=== PATIENT | female | born 1975 | race Caucasian/White ===

== ENCOUNTER → 2016-06-20 | Outpatient (CLI) | payer BC ==
--- NOTE | 2016-06-20 14:54 | MAMMOGRAPHY REPORT ---
BILATERAL DIGITAL SCREENING MAMMOGRAM TOMOSYNTHESIS WITH CAD: 06/20/2016 CLINICAL HISTORY: Routine screening. TECHNIQUE: Bilateral breast tomosynthesis and standard 2-D mammography in addition to right XCCL vie ws were obtained. Current study was also evaluated with a Computer Aided Detection (CAD) system. COMPARISON: Comparison is made to exams dated: 06/17/2015 mammogram, 06/14/2013 mammogram, 11/24/2015 ma mmogram, 12/06/2013 ultrasound biopsy, 06/06/2012 mammogram, and 01/29/2010 mammogram - [facility]. BREAST COMPOSITION: The tissue of both breasts is extremely dense, which lowers the sensitivity of mammography. FINDINGS: There are multiple bilateral circumscribed masses in the breasts. The circumscribed borde rs are best seen on the tomosynthesis images. There are stable metallic biopsy markers within the r ight breast and a stable intramammary lymph node in the right upper outer quadrant. No suspicious i rregular or spiculated mass, architectural distortion or cluster of suspicious microcalcifications i s seen. IMPRESSION: ACR BI-RADS CATEGORY 1: NEGATIVE There is no mammographic evidence of malignancy. A 1 year screening mammogram is recommended. Depen ding on the patient's personal risk factors, with first-degree relatives with a history of breast ca ncer, the patient may be eligible for screening breast MRI, if her lifetime risk is at least 20% for developing breast cancer. The patient will receive written notification of the results. Approximately 10% of breast cancers are not detected with mammography. A negative mammographic repor t should not delay biopsy if a clinically suggestive mass is present. Yamel Alas M.D. ay/:06/20/2016 08:32:37 Methods Analyst: Hardeep MONTGOMERY(Saad)(Edil), [facility] letter sent: Normal / BI-RADS Code: ACR BI-RADS Category 1: Negative
== END | disposition home or self-care (01) ==
LOC: C.MAMM 07:10
PROVIDERS: ATTEND Obstetrics & Gynecology
DX: Z12.31 Encounter for screening mammogram for malignant neoplasm of breast (principal)

== ENCOUNTER → 2016-12-20 | Outpatient (CLI) | payer BC | END | disposition home or self-care (01) | LOC: C.PAPS 09:17 | PROVIDERS: ATTEND Obstetrics & Gynecology | DX: Z01.419 Encounter for gynecological examination (general) (routine) without abnormal findings (principal) ==

== ENCOUNTER → 2016-12-29 | Outpatient (CLI) | payer BC ==
[~2016-12-29] MED LIST: GADAVIST IV PRN
--- NOTE | 2016-12-30 12:19 | MAMMOGRAPHY REPORT ---
BREAST MRI OF BOTH BREASTS : 12/29/2016 CLINICAL HISTORY: High risk patient. Additional screening. Patient has a personal history of 2 prio r right breast ultrasound guided core biopsies which yielded benign pathology. COMPARISON: Comparison is made to exams dated: 06/20/2016 mammogram, 11/24/2015 ultrasound, 11/24/2015 m ammogram, 06/17/2015 mammogram, 12/06/2013 mammogram, and 12/06/2013 ultrasound biopsy - [facility]. TECHNIQUE: Using a 1.5 Dona magnet and dedicated breast coil, multisequence axial images were obtain ed through the breasts. After uneventful IV administration of 7.5 mL of Gadavist, dynamic multiphase contrast-enhanced axial images, and sagittal postcontrast were obtained. Temporal subtraction axial images and 3-D MIP images are provided. Everything was then reviewed on a 3-D workstation, Lysanda. FINDINGS: Right breast: There is marked background parenchymal enhancement with numerous scattered enhancing fo ci throughout the right breast. There are also greater than 20 T2 hyperintense nonenhancing cysts. In addition, there are multiple bilateral circumscribed subcentimeter masses. The largest circumscri bed mass in the right breast is located in the 10:00 posterior axis, and measures 7.9 x 5.7 x 8.0 mm (axial page 65/116 and sagittal page 103/120). This mass is T2 iso-to hyperintense and it demonstrat es persistent kinetic pattern. This could represent a benign fibroadenoma. No suspicious spiculated or irregular enhancing mass, focal area of architectural distortion or suspicious non-mass enhanceme nt is identified, although the degree of background enhancement makes evaluation for non-mass enhance ment less sensitive. There is an intramammary lymph node in the upper outer posterior right breast; this is stable mammographically. No focal skin thickening or nipple retraction. The retromammary fa t is intact. No suspicious right axillary, subpectoral or intramammary lymphadenopathy. Left breast: There is marked background parenchymal enhancement with numerous scattered enhancing foc i throughout the left breast. There are also greater than 20 T2 hyperintense nonenhancing cysts. In addition, there are multiple bilateral circumscribed subcentimeter masses. The largest circumscribe d mass in the left breast is located in the 6:00 middle one third of the breast measuring 7.1 x 6.7 x 7.1 mm (axial page 87/116 and sagittal page 26/120). This mass is also T2 iso-to hyperintense and d emonstrates persistent kinetic pattern. This could represent a benign fibroadenoma. No suspicious sp iculated or irregular enhancing mass, focal area of architectural distortion or suspicious non-mass e nhancement is identified, although the degree of background enhancement makes evaluation for non-mass enhancement less sensitive. No focal skin thickening or nipple retraction. The retromammary fat is intact. No suspicious left axillary, subpectoral or intramammary lymphadenopathy. IMPRESSION: ACR-BI-RADS CATEGORY 3: PROBABLY BENIGN 1. There is diffuse/marked background parenchymal enhancement, which lowers the sensitivity of the e xam for non-mass enhancement. However, there is no irregular or spiculated enhancing mass or focal a jemal of architectural distortion in the breasts. Given the numerous enhancing foci bilaterally and be nign appearing circumscribed subcentimeter masses bilaterally, a short interval follow-up breast MRI is recommended, with particular attention to the largest benign appearing mass in the 6:00 left breas t and 10:00 right breast, detailed above. No susceptibility artifact is seen associated with these m asses to suggest they have been previously biopsied. 2. There are diffuse bilateral fibrocystic changes, with greater than 20 cysts noted within each albina ast. 3. No suspicious axillary, subpectoral or intramammary lymphadenopathy. The patient will receive written notification of the results. Yamel Alas M.D. ay/:12/29/2016 17:38:14 Hiv Counselor: horse wrangler, [facility] letter sent: Follow Up Recommended 3 BI-RADS Code: ACR-BI-RADS Category 3: Probably Benign
== END | disposition home or self-care (01) ==
LOC: C.MRI 10:44
PROVIDERS: ATTEND Obstetrics & Gynecology
DX: Z80.3 Family history of malignant neoplasm of breast (principal); N63 Unspecified lump in breast; N60.11 Diffuse cystic mastopathy of right breast; N60.12 Diffuse cystic mastopathy of left breast

== ENCOUNTER → 2017-06-22 | Outpatient (CLI) | payer BC ==
--- NOTE | 2017-06-23 15:06 | MAMMOGRAPHY REPORT ---
BILATERAL DIGITAL SCREENING MAMMOGRAM TOMOSYNTHESIS WITH CAD: 06/22/2017 CLINICAL HISTORY: Routine screening. Patient has no complaints. TECHNIQUE: Breast tomosynthesis in addition to standard 2D mammography was performed. Current study was also evaluated with a Computer Aided Detection (CAD) system. COMPARISON: Comparison is made to exams dated: 06/20/2016 mammogram, 06/17/2015 mammogram, 06/14/2013 mamm ogram, 06/06/2012 mammogram, 12/06/2013 mammogram, and 12/29/2016 breast MRI - [facility]. BREAST COMPOSITION: The tissue of both breasts is heterogeneously dense, which may obscure small mas ses. FINDINGS: There is a possible small cluster of calcifications within the left breast middle depth al esau the posterior nipple line on the MLO view, possibly projecting medially on the cc view, for which spot magnification views are recommended for further evaluation. The remainder of both breasts are stable compared to prior exams, without suspicious masses, calcific ations, or areas of architectural distortion noted. Multiple circumscribed benign-appearing masses a re seen bilaterally, which are considered benign given the multiplicity and bilaterality and likely r epresent cysts. Biopsy marker clips are again noted within the right superior breast. IMPRESSION: ACR BI-RADS CATEGORY 0: INCOMPLETE EVALUATION: NEED ADDITIONAL IMAGING EVALUATION Left breast calcifications, for which additional imaging evaluation is recommended. The patient will be called to schedule an appointment. Approximately 10% of breast cancers are not detected with mammography. A negative mammographic report should not delay biopsy if a clinically suggestive mass is present. Mary Pascal M.D. /:06/22/2017 16:32:31 Laborer Wrecking And Salvaging: Colleen MONTGOMERY(Saad)(Edil), [facility] letter sent: Addl Imaging 0 BI-RADS Code: ACR BI-RADS Category 0: Incomplete Evaluation: Need Additional Imaging Evaluation
== END | disposition home or self-care (01) ==
LOC: C.MAMM 07:46
PROVIDERS: ATTEND Obstetrics & Gynecology
DX: Z12.31 Encounter for screening mammogram for malignant neoplasm of breast (principal); R92.1 Mammographic calcification found on diagnostic imaging of breast

== ENCOUNTER → 2017-06-29 | Outpatient (CLI) | payer BC ==
--- NOTE | 2017-06-29 15:54 | MAMMOGRAPHY REPORT ---
UNILATERAL LEFT DIGITAL DIAGNOSTIC MAMMOGRAM: 06/29/2017 CLINICAL HISTORY: Callback from screening mammogram for left breast calcifications. Strong family hi story of breast cancer. TECHNIQUE: Spot magnification left CC and ML views were obtained. COMPARISON: Comparison is made to exams dated: 06/22/2017 mammogram, 12/29/2016 breast MRI, 11/24/2015 ultrasound, 11/24/2015 mammogram, 06/17/2015 mammogram, and 12/06/2013 mammogram - [facility]. BREAST COMPOSITION: The tissue of the left breast is heterogeneously dense, which may obscure small masses. FINDINGS: There is a small 2 mm cluster of faint punctate calcifications seen within the left 9:00 br east. The calcifications were not clearly present on prior exams, therefore, they are indeterminant and stereotactic biopsy is recommended for further evaluation. An oval circumscribed 19 mm mass is s een within the left 12:00 breast, consistent with a cyst as seen on prior ultrasound and MRI exams. IMPRESSION: ACR BI-RADS CATEGORY 4: SUSPICIOUS New small 2 mm cluster of faint punctate calcifications in the left 9:00 breast. The calcifications are indeterminate and stereotactic biopsy is recommended for further evaluation, especially given the strong family history of breast cancer. A phone call was made to the physician's office to confirm faxed results were received. The patient has been verbally notified of the results. She tentatively scheduled the biopsy before leaving the [facility]. Approximately 10% of breast cancers are not detected with mammography. A negative mammographic report should not delay biopsy if a clinically suggestive mass is present. Mary Pascal M.D. ah/:06/29/2017 10:07:18 Knitting Teacher: Kailyn MONTGOMERY(Saad)(Edil), [facility] letter sent: Abnormal 4/5 BI-RADS Code: ACR BI-RADS Category 4: Suspicious
== END | disposition home or self-care (01) ==
LOC: C.MAMM 09:31
PROVIDERS: ATTEND Obstetrics & Gynecology
DX: R92.1 Mammographic calcification found on diagnostic imaging of breast (principal); Z80.3 Family history of malignant neoplasm of breast

== ENCOUNTER → 2017-07-11 | Outpatient (CLI) | payer BC ==
--- NOTE | 2017-07-12 15:24 | MAMMOGRAPHY REPORT ---
BREAST MRI OF BOTH BREASTS : 07/11/2017 CLINICAL HISTORY: Short interval follow-up bilateral breast MRI for bilateral enhancing lesions. Str esau family history of breast cancer. History of 2 prior benign right breast biopsies. COMPARISON: Comparison is made to exams dated: 06/29/2017 mammogram, 06/22/2017 mammogram, 12/29/2016 b reast MRI, 06/20/2016 mammogram, 11/24/2015 ultrasound, and 11/24/2015 mammogram - [facility]. Technique: The patient was placed prone in a dedicated breast imaging coil. Precontrast axial T1-clau ghted, axial T2-weighted fat saturation, and axial T1-weighted fat saturation images were obtained. After the administration of 7.5 mL of Gadavist IV contrast, sequential T1-weighted fat saturation estee ges were obtained. Subtraction images were obtained of the dynamic contrast enhanced sequences, and 3-D reformations were performed. The [employer] software was used for kinetic analysis. Findings: There is marked background parenchymal enhancement involving bilateral breasts, which reduces the sen sitivity of the exam. Again noted are numerous enhancing foci and circumscribed benign-appearing mas ses scattered within both breasts. There is an enhancing circumscribed mass within the left 5 to 6:0 0 breast middle depth, which is slightly increased compared to the prior MRI exam, currently measurin g 8 x 8 mm, previously measuring 7 x 6 mm when measuring with a similar technique (series [id number] image [id number]). Given the interval increase, second look ultrasound and biopsy is recommended. The remainder of the enhancing foci and masses are stable compared to the 12/29/2016 MRI exam and are probably benig n and likely represent normal background parenchymal enhancement in combination with benign masses chavez ch as fibroadenomas. No new enhancing masses or areas of abnormal non-mass enhancement are evident. Multiple bilateral circumscribed T2 hyperintense, nonenhancing masses are again evident, consistent with cysts. There is no evidence of axillary adenopathy. The chest wall structures are negative. Visualized ext ramammary soft tissues are grossly unremarkable. IMPRESSION: ACR BI-RADS CATEGORY 4: SUSPICIOUS 1. Slight interval increase in size of circumscribed enhancing 8 mm mass within the left 5 to 6:00 b reast. Although this may represent a fibroadenoma, given the interval increase, second look ultrasou nd and biopsy is recommended for further evaluation. 2. The remainder of the scattered bilateral enhancing foci and benign-appearing masses are stable co mpared to the December 2016 exam and are probably benign. Recommend another short interval follow-up alex ateral breast MRI in 6 months to confirm one-year of stability. The results were discussed with the patient on the day of the exam at the time of her stereotactic bi opsy. The decision was made to perform second look ultrasound and biopsy on the same day. Mary Pascal M.D. ah/:07/11/2017 15:56:42 Consumer Education Specialist: chief informatics officer, [facility] BI-RADS Code: ACR BI-RADS Category 4: Suspicious
== END | disposition home or self-care (01) ==
LOC: C.MRI 09:15
PROVIDERS: ATTEND Obstetrics & Gynecology
DX: Z87.898 Personal history of other specified conditions (principal); Z80.3 Family history of malignant neoplasm of breast; N63.20 Unspecified lump in the left breast, unspecified quadrant

== ENCOUNTER → 2017-07-11 | Outpatient (CLI) | payer BC ==
--- NOTE | 2017-07-11 13:20 | Discharge Instructions ---
Discharge Instructions Procedure Procedure Date: Jul 11, 2017. Reason for visit: Left Calcifications. Discharge Discharge Date: Jul 11, 2017. Discharge Diagnosis: status post breast biopsy Instructions Activity Recommendations: Additional Limitations (see below) Return to School/Work: no limitations Recommended Home Diet: No Limitations Provider Instructions: ACTIVITY RECOMMENDATIONS: * No lifting, pushing, pulling or exercising the affected side for three days. RETURN TO SCHOOL/WORK: * You may return to work/school after the procedure, but do not perform any strenuous activities for 24 to 48 hours. MEDICATIONS: * Tylenol (two 325 mg) every four to six hours if needed for mild pain (if not allergic to Tylenol). DIET: * Resume previous diet. SPECIAL CARE INSTRUCTIONS: * Keep biopsy site dry for 24 hours. May shower after 24 hours, but do not soak (bathe) incision. * May remove Tegaderm (plastic patch) tomorrow AFTER showering. * Leave the steri-strips on for one week. Allow the steri-strips to fall off by themselves. If not off after one week, you may remove them. You may place a Bandaid crosswise over the strips, if desired. * Apply ice 10 minutes on and 10 minutes off as needed. * Wear a bra at bedtime to sleep more comfortably for 2-3 days. * Your referring physician should have the results after approximately 5 to 7 business days. * Call for unusual bleeding, fever, drainage, etc or if you have any questions call during normal business hours or after hours call Dr Pascal, [phone]. FOLLOW UP VISIT: Follow-up with Referring Physician as scheduled. Allergies Coded Allergies: No Known Allergies (Verified , NONE, 04/07/14) Flora Manzanares Recommendations: Call your doctor if: * Temperature above 101 degrees * Pain not relieved by pain medicine ordered * There is increased drainage or redness from any incision * You have any unanswered questions or concerns. Your Doctors Instructions noted above were prepared by provider Mary Pascal. Patient Signature Section: Patient Instructions Signature Page Alina Rios Patient (or Guardian) Signature/Date: I have read and understand the instructions given to me by my caregivers. Caregiver/RN/Doctor Signature/Date: The above-named patient and/or guardian has received patient instructions on this date. + Original Patient Signature Page (only) stays with chart. Please make copy for patient.
--- NOTE | 2017-07-11 14:40 | MAMMOGRAPHY REPORT ---
STEREOTACTIC GUIDED BIOPSY LEFT BREAST: 07/11/2017 CLINICAL HISTORY: Indeterminate calcifications in the left breast at approximately 9:00. PATIENT CONSENT: The procedure, risks, benefits, and alternatives of stereotactic biopsy with clip pl acement were discussed with the patient, and verbal and written consent was obtained. A timeout was performed immediately prior to the procedure. PROCEDURE DESCRIPTION: With stereotactic guidance, aseptic technique, and lidocaine as a local anesth etic (1% lidocaine to anesthetize the skin and 1% lidocaine with epinephrine to anesthetize the deepe r tissues), the calcifications of concern in the left 9:00 breast were sampled multiple times with a 9-gauge vacuum-assisted biopsy needle ([employer]). The path of approach was medial. The specimen radiograph demonstrates calcifications to be present in the samples. A metallic marker clip was plac ed at the biopsy site. This was confirmed on postprocedure mammograms. Direct pressure was applied at the biopsy site and hemostasis was readily achieved. The patient tolerated the procedure without complication. She was given wound care instructions. COMPARISON: Comparison is made to exams dated: 07/11/2017 breast MRI, 06/29/2017 mammogram, and 018 mammogram - [facility]. IMPRESSION: STEREOTACTIC GUIDED BIOPSY Stereotactic biopsy of indeterminate calcifications in the left 9:00 breast, with clip placement. Th e patient will receive pathology results from her referring provider. Mary Pascal M.D. /:07/11/2017 13:21:36 Roadside Mechanic: Harmony MONTGOMERY(R)(Edil), [facility]
--- NOTE | 2017-07-11 14:40 | MAMMOGRAPHY REPORT ---
UNILATERAL LEFT DIGITAL DIAGNOSTIC MAMMOGRAM: 07/11/2017 CLINICAL HISTORY: Status post left breast biopsies. TECHNIQUE: Post procedural left CC and ML views were obtained. COMPARISON: Comparison is made to exams dated: 07/11/2017 ultrasound, 07/11/2017 breast MRI, 06/29/2017 mammogram, 06/22/2017 mammogram, 12/29/2016 breast MRI, and 11/24/2015 ultrasound - [facility]. BREAST COMPOSITION: The tissue of the left breast is heterogeneously dense, which may obscure small masses. FINDINGS: A new dumbbell-shaped biopsy marker clip is seen at the site of the biopsied calcification s in the left 9:00 breast. A ribbon-shaped biopsy marker clip is seen at the site of the biopsied ma ss in the left 5:00 to 6:00 breast. No significant postbiopsy hematoma is seen. IMPRESSION: POST PROCEDURE IMAGING FOR MARKER PLACEMENT New biopsy marker clips status post left breast biopsies 2. Pathology results are pending. Approximately 10% of breast cancers are not detected with mammography. A negative mammographic report should not delay biopsy if a clinically suggestive mass is present. Mary Pascal M.D. /:07/11/2017 13:54:48 Flight Operations Inspector: Harmony MONTGOMERY(Saad)(M), [facility] BI-RADS Code: Post Procedure Imaging For Marker Placement
--- NOTE | 2017-07-12 15:21 | MAMMOGRAPHY REPORT ---
ULTRASOUND GUIDED BIOPSY LEFT BREAST: 07/11/2017 CLINICAL HISTORY: Left 5:00 breast mass. PATIENT CONSENT: The procedure, risks and benefits were discussed with the patient and informed writt en consent was obtained. A timeout was performed immediately prior to the procedure. PROCEDURE DESCRIPTION: With ultrasound guidance, aseptic technique, and lidocaine as the local anesth etic (1% lidocaine to anesthetize the skin and 1% lidocaine with epinephrine to anesthetize the deepe r tissues), the mass of concern in the left 5:00 periareolar breast was sampled 3 times with a 14-gau [employer] biopsy needle. Immediately thereafter, with ultrasound guidance, aseptic technique, and l idocaine as the local anesthetic, a metallic localizer clip was placed centrally in the mass. Direct pressure was applied to the site immediately post procedure and hemostasis was achieved. Postproced ure unilateral mammograms were performed to confirm clip placement. The patient tolerated the proced ure without complication. She was given wound care instructions. The specimens were sent to patholog y for analysis. COMPARISON: Comparison is made to exams dated: 07/11/2017 mammogram, 07/11/2017 ultrasound, 07/11/2017 breast MRI, 06/29/2017 mammogram, 06/22/2017 mammogram, and 12/29/2016 breast MRI - [facility]. IMPRESSION: ULTRASOUND GUIDED BIOPSY Ultrasound-guided core needle biopsy of the left 5:00 periareolar breast mass, with clip placement. The patient will receive pathology results from her referring provider. Mary Pascal M.D. /:07/11/2017 16:02:29 Kelp Cutter: Harmony CEJA)(Edil), [facility]
--- NOTE | 2017-07-12 15:24 | MAMMOGRAPHY REPORT ---
ULTRASOUND OF LEFT BREAST: 07/11/2017 CLINICAL HISTORY: Interval increase in size of enhancing mass in the left 5 to 6:00 breast, for which second look ultrasound was recommended for further evaluation. COMPARISON: Comparison is made to exams dated: 07/11/2017 mammogram, 07/11/2017 breast MRI, 06/29/2017 mammogram, 06/22/2017 mammogram, and 12/29/2016 breast MRI - [facility]. TECHNIQUE: Real-time targeted ultrasound of the left breast was performed. FINDINGS: Real-time, high resolution targeted ultrasound was performed of the left 5 to 6:00 breast in the region of the MRI mass. In the left breast at 5:00 periareolar region, there is a lobulated h ypoechoic solid-appearing circumscribed mass which measures 7 x 7 x 7 mm. This corresponds with the increasing enhancing mass seen on breast MRI and is indeterminate. Recommend ultrasound guided core needle biopsy for further evaluation. A few cysts were seen during the exam, including a circumscrib ed anechoic 8 mm benign simple cyst in the left 4:00 periareolar breast. IMPRESSION: ACR BI-RADS CATEGORY 4: SUSPICIOUS - FOLLOW-UP RECOMMENDED Hypoechoic 7 mm mass in the left 5:00 periareolar breast on ultrasound, which corresponds with the in creasing mass seen on MRI. The mass is indeterminate and ultrasound-guided core needle biopsy is rec ommended for further evaluation. This may represent a fibroadenoma. The results were discussed with the patient. Biopsy was performed immediately after the exam. Mary Pascal M.D. ah/:07/11/2017 16:00:02 Machine Heel Seat Fitter: Mary Pascal MD, [facility] BI-RADS Code: ACR BI-RADS Category 4: Suspicious
== END | disposition home or self-care (01) ==
LOC: C.MAMM 12:24
PROVIDERS: ATTEND Obstetrics & Gynecology
DX: R92.0 Mammographic microcalcification found on diagnostic imaging of breast (principal); N63.20 Unspecified lump in the left breast, unspecified quadrant

== ENCOUNTER → 2017-09-27 | Outpatient (CLI) | payer BC | END | disposition home or self-care (01) | LOC: C.RDSM 20:07 | PROVIDERS: ATTEND Podiatrist | DX: M79.672 Pain in left foot (principal) ==

== ENCOUNTER → 2017-10-18 | Outpatient (CLI) | payer BC | END | disposition home or self-care (01) | LOC: C.RDSM 12:55 | PROVIDERS: ATTEND Podiatrist | DX: M79.672 Pain in left foot (principal); Z88.8 Allergy status to other drugs, medicaments and biological substances; Z88.6 Allergy status to analgesic agent ==

== ENCOUNTER → 2018-01-15 | Outpatient (CLI) | payer BC | END | disposition home or self-care (01) | LOC: C.PAPS 16:28 | PROVIDERS: ATTEND Obstetrics & Gynecology | DX: Z01.419 Encounter for gynecological examination (general) (routine) without abnormal findings (principal) ==

== ENCOUNTER → 2018-01-25 | Outpatient (CLI) | payer BC ==
--- NOTE | 2018-01-30 06:59 | MAMMOGRAPHY REPORT ---
BREAST MRI OF BOTH BREASTS: 01/25/2018 CLINICAL HISTORY: Recent stereotactic biopsy of left breast calcifications which yielded benign patho logy June 2017. The patient also underwent ultrasound-guided core needle biopsy of an increasing l eft 5:00 breast mass which yielded a benign fibroadenoma. The patient presents for short interval fol low-up of bilateral breast masses. Strong family history of breast cancer. COMPARISON: Comparison is made to exams dated: 07/11/2017 ultrasound biopsy, 07/11/2017 mammogram, 06/14 stereotactic biopsy, 07/11/2017 ultrasound, 07/11/2017 breast MRI, and 06/29/2017 mammogram - [facility]. Breast MRI dated 12/29/2016. Technique: The patient was placed prone in a dedicated breast imaging coil. Precontrast axial T1-clau ghted, axial T2-weighted fat saturation, and axial T1-weighted fat saturation images were obtained. After the administration of 8 mL of Gadavist IV contrast, sequential T1-weighted fat saturation image s were obtained. Subtraction images were obtained of the dynamic contrast enhanced sequences, and 3- D reformations were performed. The Cirro software was used for kinetic analysis. Findings: There is moderate background parenchymal enhancement involving bilateral breasts, which reduces the s ensitivity of the exam. Again noted are numerous enhancing foci and circumscribed masses scattered w ithin both breasts. In the right 6:00 anterior breast, there is a lobulated enhancing 10 x 6 x 8 mm mass which demonstrates a mixed plateau and persistent kinetic pattern (series [id number] image 84 and ser ies 6 image 98). The mass has significantly increased in size compared to the prior exams, previousl y measuring 5 x 4 mm on the December 2016 exam. Although this may represent another fibroadenoma, given the interval increase in size, second look ultrasound and possible biopsy is recommended to exclude t he possibility of a phyllodes tumor or malignancy. The remainder of the bilateral enhancing foci and circumscribed masses are stable compared to prior e xams. Enhancing 9 x 8 mm mass within the left 5:00 breast is stable compared to the prior exam, and w as recently biopsied and yielded a benign fibroadenoma. Enhancing circumscribed 6 mm mass within the right upper outer quadrant posteriorly is stable dating back to the December 2016 exam. No new enhancin g masses or areas of abnormal non-mass enhancement are seen. Multiple bilateral circumscribed T2 hyp erintense, nonenhancing masses are again evident, consistent with cysts. There is no evidence of axillary adenopathy. The chest wall structures are negative. Visualized por tions of the extramammary soft tissues are grossly unremarkable. IMPRESSION: ACR BI-RADS CATEGORY 0: INCOMPLETE EVALUATION: NEED ADDITIONAL IMAGING EVALUATION 1. Significant interval increase in size of enhancing circumscribed 10 mm mass within the right 6:00 anterior breast. Although this may represent a fibroadenoma, given the interval increase in size a second look ultrasound and possible ultrasound-guided core needle biopsy is recommended to exclude th e possibility of a phyllodes tumor or malignancy. (45 minute time slot). 2. The remainder of the scattered bilateral enhancing foci and circumscribed benign-appearing masses are stable compared to prior MRI exams and are probably benign. Pending benign pathology results of the right breast biopsy, recommend follow-up bilateral breast MRI in one year to confirm longer stab ility. 3. Enhancing mass in the left 5:00 breast is stable and yielded a benign fibroadenoma on biopsy. Mary Pascal M.D. ah/:01/26/2018 16:52:49 Dispatcher Chief Oil: front end specialist, [facility] letter sent: [facility] Imaging 0 BI-RADS Code: ACR BI-RADS Category 0: Incomplete Evaluation: Need Additional Imaging Evaluation
== END | disposition home or self-care (01) ==
LOC: C.MRI 15:30
PROVIDERS: ATTEND Obstetrics & Gynecology
DX: R92.8 Other abnormal and inconclusive findings on diagnostic imaging of breast (principal); N63.13 Unspecified lump in the right breast, lower outer quadrant

== ENCOUNTER → 2018-02-07 | Outpatient (CLI) | payer BC ==
--- NOTE | 2018-02-07 11:26 | Discharge Instructions ---
Discharge Instructions Procedure Procedure Date: Feb 07, 2018. Reason for visit: Right Mass. Discharge Discharge Date: Feb 07, 2018. Discharge Diagnosis: status post breast biopsy Instructions Activity Recommendations: Additional Limitations (see below) Return to School/Work: no limitations Recommended Home Diet: No Limitations Provider Instructions: ACTIVITY RECOMMENDATIONS: * No lifting, pushing, pulling or exercising the affected side for three days. RETURN TO SCHOOL/WORK: * You may return to work/school after the procedure, but do not perform any strenuous activities for 24 to 48 hours. MEDICATIONS: * Tylenol (two 325 mg) every four to six hours if needed for mild pain (if not allergic to Tylenol). DIET: * Resume previous diet. SPECIAL CARE INSTRUCTIONS: * Keep biopsy site dry for 24 hours. May shower after 24 hours, but do not soak (bathe) incision. * May remove Tegaderm (plastic patch) 24 hours after procedure * Leave the steri-strips on for one week. Allow the steri-strips to fall off by themselves. If not off after one week, you may remove them. You may place a Bandaid crosswise over the strips, if desired. * Apply ice 10 minutes on and 10 minutes off as needed. * Wear a bra at bedtime to sleep more comfortably for 2-3 days. * Your referring physician should have the results after approximately 5 to 7 business days. * Call for unusual bleeding, fever, drainage, etc or if you have any questions call during normal business hours or after hours call Dr Pascal, [phone]. FOLLOW UP VISIT: Follow-up with Referring Physician as scheduled. Allergies Coded Allergies: No Known Allergies (Verified , NONE, 04/07/14) Flora Manzanares Recommendations: Call your doctor if: * Temperature above 101 degrees * Pain not relieved by pain medicine ordered * There is increased drainage or redness from any incision * You have any unanswered questions or concerns. Your Doctors Instructions noted above were prepared by provider Mary Pascal. Patient Signature Section: Patient Instructions Signature Page Alina Rios Patient (or Guardian) Signature/Date: I have read and understand the instructions given to me by my caregivers. Caregiver/RN/Doctor Signature/Date: The above-named patient and/or guardian has received patient instructions on this date. + Original Patient Signature Page (only) stays with chart. Please make copy for patient.
--- NOTE | 2018-02-07 13:55 | MAMMOGRAPHY REPORT ---
UNILATERAL RIGHT DIGITAL DIAGNOSTIC MAMMOGRAM TOMOSYNTHESIS: 02/07/2018 CLINICAL HISTORY: Status post right breast biopsy. TECHNIQUE: Breast tomosynthesis in addition to standard 2D mammography was performed. Postprocedural right CC and ML tomosynthesis images were obtained. COMPARISON: Comparison is made to exams dated: 07/11/2017 mammogram, 06/29/2017 mammogram, 06/22/2017 m ammogram, 02/07/2018 ultrasound, 02/07/2018 ultrasound biopsy, and 01/25/2018 breast MRI - [facility]. BREAST COMPOSITION: The tissue of right breast is heterogeneously dense, which may obscure small mass es. FINDINGS: A new wing-shaped biopsy marker clip is seen at the site of the biopsied mass in the right 6:00 anterior breast. No significant postbiopsy hematoma is seen. IMPRESSION: POST PROCEDURE IMAGING FOR MARKER PLACEMENT New biopsy clip status post ultrasound-guided biopsy of a right 6:00 breast mass. Pathology results are pending. Some breast cancers are not detected with mammography. A negative mammographic report should not ambrocio y biopsy if a clinically suggestive mass is present. Mary Pascal M.D. /:02/07/2018 11:40:35 Setter Cold Rolling Machine: Harmony Sumner [facility] BI-RADS Code: Post Procedure Imaging For Marker Placement
--- NOTE | 2018-02-07 13:55 | MAMMOGRAPHY REPORT ---
ULTRASOUND GUIDED BIOPSY RIGHT BREAST: 02/07/2018 CLINICAL HISTORY: Right 6:00 breast mass. PATIENT CONSENT: The procedure, risks and benefits were discussed with the patient and informed writt en consent was obtained. A timeout was performed immediately prior to the procedure. PROCEDURE DESCRIPTION: With ultrasound guidance, aseptic technique, and lidocaine as the local anesth etic (1% lidocaine to anesthetize the skin and 1% lidocaine with epinephrine to anesthetize the deepe r tissues), the mass of concern in the right 6:00 periareolar breast was sampled 4 times with a 14-ga uge Achieve biopsy needle. Immediately thereafter, with ultrasound guidance, a metallic localizer c lip (wing-shaped) was placed at the biopsy site. Direct pressure was applied to the site immediately post procedure until hemostasis was achieved. Postprocedure unilateral mammograms were performed to confirm clip placement; see separate dictation for details. Steri-Strips were placed over the site and covered with an Opsite patch. The patient tolerated the procedure without complication. She was given wound care instructions. The specimens were sent to pathology for analysis. COMPARISON: Comparison is made to exams dated: 01/25/2018 breast MRI, 07/11/2017 ultrasound biopsy, stereotactic biopsy, 07/11/2017 mammogram, 07/11/2017 ultrasound, and 07/11/2017 breast MRI - [facility]. IMPRESSION: ULTRASOUND GUIDED BIOPSY Ultrasound-guided core needle biopsy of the right 6:00 breast mass, with clip placement. The patient will receive pathology results from her referring provider. Pending benign pathology results, recom mend follow-up bilateral breast MRI in one year. The patient is also due for bilateral mammograms [facility] [place] 2017. Mary Pascal M.D. /:02/07/2018 11:32:37 [employer] Field Technician: BRENNA Padilla)(M), [facility]
--- NOTE | 2018-02-07 13:55 | MAMMOGRAPHY REPORT ---
ULTRASOUND OF RIGHT BREAST: 02/07/2018 CLINICAL HISTORY: Enhancing 10 mm circumscribed mass seen within the right 6:00 anterior breast on re cent breast MRI, for which second look ultrasound was recommended. COMPARISON: Comparison is made to exams dated: 01/25/2018 breast MRI, 07/11/2017 ultrasound biopsy, stereotactic biopsy, 07/11/2017 mammogram, 07/11/2017 ultrasound, and 07/11/2017 breast MRI - [facility]. Findings: Real-time, high-resolution targeted ultrasound was performed of the right 6:00 breast in th e region of the enhancing mass seen on recent breast MRI. In the right 6:00 periareolar breast, ther e is a lobulated hypoechoic mass which measures 10 x 14 x 7 mm. This corresponds with the enhancing m ass seen on MRI and is indeterminant. Recommend ultrasound-guided core needle biopsy for further katelyn luation. IMPRESSION: ACR BI-RADS CATEGORY 4: SUSPICIOUS Lobulated hypoechoic 14 mm mass within the right 6:00 periareolar breast, which corresponds with the enhancing mass seen on breast MRI. The mass is indeterminate and ultrasound-guided core needle biops y is recommended for further evaluation, although this may represent a fibroadenoma. The biopsy was performed immediately after the ultrasound exam. The patient was verbally notified of the results. Mary Pascal M.D. /:02/07/2018 11:31:05 Chipping Machine Operator: Mary Pascal MD, [facility] BI-RADS Code: ACR BI-RADS Category 4: Suspicious
== END | disposition home or self-care (01) ==
LOC: C.MAMM 10:33
PROVIDERS: ATTEND Obstetrics & Gynecology
DX: R92.8 Other abnormal and inconclusive findings on diagnostic imaging of breast (principal); N63.10 Unspecified lump in the right breast, unspecified quadrant